=== PATIENT | female | born 1995 | race American Indian/Alaskan Native ===

== ENCOUNTER 2018-04-10 13:16 | Inpatient (IN) | payer MEDICAID ==
--- NOTE | 2018-04-10 16:00 | History and Physical Report ---
History of Present Illness Date of examination: 04/10/18 Date of admission: 04/10/18 13:18 Chief complaint: Induction of labor History of present illness: Pt is a 22yo BF EDC 04/20/18; EGA 38 4/7 weeks presents for induction of labor per [facility] due to Oligohydramnios (SHELIA 5.32). She received care at [facility] since 12 weeks and co-managed by [facility] for +RPR with - FTA - previously treated with PCN, and +EVY with titer 1:640 records are available and GBS is Positive. Past History Past Medical History: other (+VEY) Past Surgical History: no surgical history RIPRAP MAN History: abnormal PAP smear (LSIL) Social history: no significant social history, single - Obstetrical History Expected Date of Delivery: 04/20/18 Actual Gestation: 38 Week(s) 4 Day(s) : 1 Medications and Allergies Allergies Allergy/AdvReac Type Severity Reaction Status Date / Time No Known Allergies Allergy Verified 04/10/18 15:04 Home Medications Medication Instructions Recorded Confirmed Last Taken Type Iron 1 tab PO DAILY 04/10/18 04/10/18 04/09/18 21:00 History Pnv No.95/Ferrous Fum/Folic AC 1 tab PO DAILY 04/10/18 04/10/18 04/09/18 21:00 History [ Formula Tablet] Review of Systems All systems: negative - Vital Signs Vital signs: Vital Signs Pulse Pulse Ox 85 98 04/10/18 13:46 04/10/18 13:46 Temp Pulse Resp BP Pulse Ox 98.8 F 88 18 117/79 100 04/10/18 14:10 04/10/18 14:28 04/10/18 14:10 04/10/18 14:28 04/10/18 13:56 - Physical Exam Breasts: Positive: deferred Cardiovascular: Regular rate Lungs: Positive: Clear to auscultation Abdomen: Positive: normal appearance Genitourinary (Female): Positive: normal external genitalia Vagina: Positive: normal moisture Uterus: Positive: enlarged Extremities: Positive: normal - Obstetrical FHR: category 1 Uterine Contraction Monitor Mode: External Cervical Dilatation: 1 (per nurse) Cervical Effacement Percentage: 50 (per nurse) station: -2 Uterine Contraction Pattern: Regular Uterine Tone Measurement Phase: Contraction Uterine Contraction Intensity: Mild Results Result Diagrams: 04/10/18 17:16 All other labs normal. Ultrasound: report reviewed Assessment and Plan - Patient Problems (1) 38 weeks gestation of Onset Date: 04/10/18 Current Visit: Yes Status: Acute Plan to address problem: A: IUP @ 38 4/7 weeks Oligohydramnios +RPR +EVY +GBS P: Admit to L&D for pitocin induction of labor IV Ampicillin (2) Oligohydramnios without rupture of membranes in third trimester Onset Date: 04/10/18 Current Visit: Yes Status: Acute Qualifiers: Fetus number: single or unspecified fetus Qualified Code(s): O41.03X0 - Oligohydramnios, third trimester, not applicable or unspecified (3) Positive RPR test Onset Date: 04/10/18 Current Visit: Yes Status: Chronic (4) EVY positive Onset Date: 04/10/18 Current Visit: Yes Status: Chronic
[2018-04-10] MEDS ORDERED: XYLOCAINE 2% INFILTRATI ONE (16:01)
[2018-04-10] MEDS ORDERED: POLYCILLIN/NS 2 GM/100 ML 2 GM/100 ML BAG IV ONE (16:01)
[2018-04-10] MEDS ORDERED: MINERAL OIL PO PRN (16:01)
[2018-04-10] MEDS ORDERED: ePHEDrine SULFATE IV PRN (16:01)
[2018-04-10] MEDS ORDERED: NARCAN 0.4 MG/1 ML IV PRN (16:01)
[2018-04-10] MEDS ORDERED: SUBLIMAZE IV PRN (16:01)
[2018-04-10] MEDS ORDERED: BRETHINE IVP PRN (16:01)
[2018-04-10] MEDS ORDERED: PHENERGAN PO PRN (16:01)
[2018-04-10] MEDS ORDERED: PHENERGAN PR PRN (16:01)
[2018-04-10] MEDS ORDERED: BRETHINE SUB-Q PRN (16:01)
[2018-04-10] MEDS: LACTATED RINGERS 1,000 ML IV SCH (16:33)
[2018-04-10] MEDS ORDERED: PITOCin/NS 20 UNIT/1000ML DRIP 20 UNITS/1,000 ML BAG IV SCH (17:00)
[2018-04-10] MEDS ORDERED: PITOCin/NS 30 UNIT/500ML 30 UNITS/500 ML BAG IV SCH (17:00)
[2018-04-10 18:28] LABS: Hemoglobin 10.8 gm/dl (10.1-14.3); Mean Corpuscular HGB Conc 31 % (30-34); Mean Corpuscular Hemoglobin 26 pg (28-32); Mean Corpuscular Volume 85 fl (79-97); Platelet Count 275 K/mm3 (140-440); Red Blood Count 4.14 M/mm3 (3.65-5.03); Red Cell Distribution Width 16.9 % (13.2-15.2)
[2018-04-10] MEDS: AMPICILLIN/NS 1 GM/50 ML 1 GM/50 ML BAG IV SCH ×2 (20:33→22:44)
[2018-04-10] MEDS: STADOL IV PRN (21:17)
[2018-04-11] MEDS: STADOL IV PRN (00:18)
[2018-04-11] MEDS: LACTATED RINGERS 1,000 ML IV SCH (00:33)
[2018-04-11] MEDS ORDERED: ePHEDrine SULFATE IV PRN (01:13)
[2018-04-11] MEDS ORDERED: NARCAN 2 MG/2 ML IV PRN (01:13)
[2018-04-11] MEDS ORDERED: fentaNYL-BUPIV 2 MCG/ML-0.125% 200 MCG/100 ML BAG EPIDURAL SCH (02:00)
--- NOTE | 2018-04-11 02:53 | Procedure Note ---
OB Delivery Note - Delivery Date of Delivery: 04/11/18 Surgeon: JOSE A MCQUEEN Estimated blood loss: 200cc - Vaginal Delivery presentation: vertex Delivery position: OP Intrapartum events: PROM->1hr before delivery, hydramnios Delivery induction: oxytocin Delivery augmentation: rupture of membranes, pitocin Delivery monitor: external FHT, external uterine Route of delivery: Delivery placenta: spontaneous Delivery cord: 3 umbilical vessels Episiotomy: none Delivery laceration: none Anesthesia: epidural Delivery comments: Infant delivered OP and placed on Mom's chest for [id number] bonding and delayed cord clamping, cut by Daisy - Infant A at 1 minute: 8 at 5 minutes: 9 Infant Gender: Female (2661gms)
[2018-04-11] MEDS ORDERED: PHENERGAN PO PRN (02:55)
[2018-04-11] MEDS ORDERED: ZOFRAN IV PRN (02:55)
[2018-04-11] MEDS ORDERED: PHENERGAN PR PRN (02:55)
[2018-04-11] MEDS ORDERED: TUCKS PAD TP PRN (02:55)
[2018-04-11] MEDS ORDERED: DULCOLAX PR PRN (02:55)
[2018-04-11] MEDS ORDERED: TYLENOL PO PRN (02:55)
[2018-04-11] MEDS ORDERED: BENADRYL PO PRN (02:55)
[2018-04-11] MEDS ORDERED: MILK OF MAGNESIA PO PRN (02:55)
[2018-04-11] MEDS ORDERED: NORCO 5/325 PO PRN (02:55)
[2018-04-11] MEDS ORDERED: LANSINOH TP PRN (02:55)
[2018-04-11] MEDS ORDERED: SODIUM CHLORIDE FLUSH SYRINGE 10 ML IV NR (03:00)
[2018-04-11] MEDS ORDERED: PITOCin/NS 20 UNIT/1000ML DRIP 20 UNITS/1,000 ML BAG IV SCH (03:00)
[2018-04-11] MEDS: MOTRIN PO SCH ×3 (05:40→20:30)
[2018-04-11] MEDS ORDERED: PRENATAL VITAMIN PO SCH (10:00)
[2018-04-11 17:23] LABS: Hematocrit 29.3 % (30.3-42.9); Hemoglobin 8.9 gm/dl (10.1-14.3)
[2018-04-11] MEDS: FEOSOL PO SCH (21:30)
[2018-04-11] MEDS: COLACE PO SCH (21:30)
[2018-04-12] MEDS ORDERED: BOOSTRIX IM ONE (06:00)
[2018-04-12] MEDS ORDERED: M-M-R II VACCINE SUB-Q ONE (06:00)
--- NOTE | 2018-04-12 08:25 | Progress Note ---
Assessment and Plan - Patient Problems (1) 38 weeks gestation of Onset Date: 04/10/18 Current Visit: Yes Status: Resolved (2) Oligohydramnios without rupture of membranes in third trimester Onset Date: 04/10/18 Current Visit: Yes Status: Resolved Qualifiers: Fetus number: single or unspecified fetus Qualified Code(s): O41.03X0 - Oligohydramnios, third trimester, not applicable or unspecified (3) Positive RPR test Onset Date: 04/10/18 Current Visit: Yes Status: Chronic (4) EVY positive Onset Date: 04/10/18 Current Visit: Yes Status: Chronic (5) (normal spontaneous vaginal delivery) Onset Date: 04/12/18 Current Visit: Yes Status: Resolved Plan to address problem: A: S/P - PPD #1 Doing well +RPR - 1:8 +EVY P: May go home today Follow up in office in 4 weeks for repeat RPR titer Subjective - Subjective Date of service: 04/12/18 Principal diagnosis: s/p - PPD #1 Interval history: Pt is feeling well without complaints. Bleeding improved. Patient reports: appetite normal, voiding normally, pain well controlled, flatus , ambulating normally, no dizzy ambulation, no nauseated Comins: doing well, bottle feeding Objective - Vital Signs Latest vital signs: Vital Signs Temp Pulse Resp BP Pulse Ox 04/12/18 01:57 98.9 F 90 20 122/78 98 04/11/18 15:40 99.4 F 102 H 20 123/73 97 04/11/18 11:46 99.2 F 95 H 20 118/71 97 Intake and Output 04/11/18 04/12/18 04/12/18 22:59 06:59 14:59 Intake Total 240 240 Balance 240 240 Intake: Oral 240 240 Other: Total, Intake Amount 240 240 # Voids Void 1 1 - Exam Breasts: Present: deferred Cardiovascular: Present: Regular rate Lungs: Present: Clear to auscultation Abdomen: Present: normal appearance, soft Uterus: Present: normal, firm, fundal height below umbilicus Extremities: Present: normal - Labs Labs: Abnormal lab results 04/11/18 Range/Units 16:57 Hgb 8.9 L (10.1-14.3) gm/dl Hct 29.3 L (30.3-42.9) % Laboratory Tests 04/10/18 04/10/18 04/10/18 17:16 17:16 17:46 WBC 7.7 RBC 4.14 Hgb 10.8 Hct 35.0 MCV 85 MCH 26 L MCHC 31 RDW 16.9 H Plt Count 275 RPR Titer 1:8 RPR Reactive Blood Type A POSITIVE Antibody Screen Negative 04/11/18 16:57 WBC RBC Hgb 8.9 L Hct 29.3 L MCV MCH MCHC RDW Plt Count RPR Titer RPR Blood Type Antibody Screen
[2018-04-12] MEDS: COLACE PO SCH (10:42)
[2018-04-12] MEDS: FEOSOL PO SCH (10:42)
--- NOTE | 2018-04-12 12:21 | Discharge Summary ---
Providers - Providers Date of Admission: 04/10/18 13:18 Date of discharge: 04/12/18 Attending physician: JOSE A MCQUEEN Primary care physician: JOSE A MCQUEEN Hospitalization Reason for admission: induction of labor, IUP at term, other (Oligohydramnios; + RPR; +EVY) Delivery: Episiotomy: none Laceration: none Other procedures: none complications: none Discharge diagnosis: IUP at term delivered baby: female Hospital course: Unremarkable. Condition at discharge: Good Disposition: DC-01 TO HOME OR SELFCARE - Discharge Diagnoses (1) 38 weeks gestation of Status: Resolved (2) Oligohydramnios without rupture of membranes in third trimester Status: Resolved Qualifiers: Fetus number: single or unspecified fetus Qualified Code(s): O41.03X0 - Oligohydramnios, third trimester, not applicable or unspecified (3) Positive RPR test Status: Chronic (4) EVY positive Status: Chronic (5) (normal spontaneous vaginal delivery) Status: Resolved Plan - Discharge Medications Prescriptions: Ferrous Sulfate [Feosol 325 MG tab] 325 mg PO BID #60 tablet Ibuprofen [Motrin 600 MG tab] 600 mg PO Q6H #30 tablet Vit-Fe Fumar-FA [ Vitamin] 1 each PO QDAY #30 tablet - Provider Discharge Summary Activity: routine, no sex for 6 weeks, no heavy lifting 4 weeks, no strenuous exercise Diet: routine Instructions: routine Additional instructions: [] Smoking cessation referral if applicable(refer to patient education folder for contact #) [] Refer to [facility] Booklet Call your doctor immediately for: * Fever > 100.5 * Heavy vaginal bleeding ( >1 pad per hour) * Severe persistent headache * Shortness of breath * Reddened, hot, painful area to leg or breast * Drainage or odor from incision. * Keep incision clean and dry at all times and follow doctor's instructions regarding bathing/showering Follow up in 4 weeks for repeat RPR - Follow up plan Follow up: JOSE A MCQUEEN MD [Primary Care Provider] - 6 Weeks
[2018-04-12 18:03] VITALS: BP 123/81
== END 2018-04-12 18:30 | disposition home or self-care (01) | DRG 775 ==
LOC: TRG 13:16 → LD 13:18 → OB 04-11 04:22
PROVIDERS: ADMIT Obstetrics & Gynecology; ATTEND Obstetrics & Gynecology
PROC: 10E0XZZ Delivery of Products of Conception, External Approach (ICD-10-PCS; principal; 2018-04-11)
PROC: 3E033VJ Introduction of Other Hormone into Peripheral Vein, Percutaneous Approach (ICD-10-PCS; 2018-04-11)
PROC: 3E0R3BZ Introduction of Anesthetic Agent into Spinal Canal, Percutaneous Approach (ICD-10-PCS; 2018-04-11)
PROC: 00HU33Z Insertion of Infusion Device into Spinal Canal, Percutaneous Approach (ICD-10-PCS; 2018-04-11)
PROC: 3E0234Z Introduction of Serum, Toxoid and Vaccine into Muscle, Percutaneous Approach (ICD-10-PCS; 2018-04-12)
DX: O41.03X0 Oligohydramnios, third trimester, not applicable or unspecified (principal); O42.02 Full-term premature rupture of membranes, onset of labor within 24 hours of rupture; Z3A.38 38 weeks gestation of pregnancy; Z37.0 Single live birth; Z23 Encounter for immunization
CPT/HCPCS: 36415; 85014; 85018; 85027; 86592; 86593; 86780; 86850; 86900; 86901; 88307; J0290; J0595; J2590; J3010; J7120

== ENCOUNTER 2019-08-02 19:59 | Emergency (ER) | payer SELFPAY ==
--- NOTE | 2019-08-02 21:41 | Emergency Department Report ---
ED General Adult HPI - General Chief complaint: Urogenital-Female Stated complaint: RT BREAST ISSUE Source: patient Mode of arrival: Ambulatory Limitations: No Limitations - History of Present Illness Initial comments: Patient is a 24-year-old [place] female with no past medical history who presents to the ED with complaint of acute onset persistent painful mildly erythematous maculopapular nonfluctuant rash on right breast areolar for the last 4 days. Patient states that the rash started draining purulent discharge about one hour prior to arrival in the ED. Patient denies dizziness, fever, chills, nausea, vomiting, shortness of breath or sore throat. MD Complaint: painful draining rash on right breast -: Sudden, days(s) (4) Location: chest (right breast areolar) Radiation: non-radiation Quality: aching, sharp Consistency: constant Improves with: none Worsens with: none Associated Symptoms: denies other symptoms. denies: confusion, cough, diaphoresis, fever/chills, headaches, loss of appetite, malaise, nausea/vomiting, rash, shortness of breath, syncope, other Treatments Prior to Arrival: none - Related Data Home Medications Medication Instructions Recorded Confirmed Last Taken Iron 1 tab PO DAILY 04/10/18 04/10/18 04/09/18 21:00 Pnv No.95/Ferrous Fum/Folic AC 1 tab PO DAILY 04/10/18 04/10/18 04/09/18 21:00 [ Formula Tablet] Previous Rx's Medication Instructions Recorded Last Taken Type Ferrous Sulfate [Feosol 325 MG tab] 325 mg PO BID #60 tablet 04/12/18 Unknown Rx Vit-Fe Fumar-FA [ 1 each PO QDAY #30 tablet 04/12/18 Unknown Rx Vitamin] Ibuprofen [Motrin 600 MG tab] 600 mg PO Q6H PRN #20 tablet 08/02/19 Unknown Rx Sulfamethoxazole/Trimethoprim 1 each PO Q12H #20 tablet 08/02/19 Unknown Rx [Bactrim DS TAB] Allergies Allergy/AdvReac Type Severity Reaction Status Date / Time No Known Allergies Allergy Verified 04/10/18 15:04 ED Review of Systems ROS: Stated complaint: RT BREAST ISSUE Other details as noted in HPI Constitutional: denies: chills, fever Eyes: denies: eye pain, eye discharge, vision change ENT: denies: ear pain, throat pain Respiratory: denies: cough, shortness of breath, wheezing Cardiovascular: denies: chest pain, palpitations Endocrine: no symptoms reported Gastrointestinal: denies: abdominal pain, nausea, diarrhea Genitourinary: denies: urgency, dysuria, discharge Musculoskeletal: denies: back pain, joint swelling, arthralgia Skin: rash (erythematous maculopapular moderately painful nonfluctuant rash with purulent discharge on right breast areola). denies: lesions Neurological: denies: headache, weakness, paresthesias Psychiatric: denies: anxiety, depression Hematological/Lymphatic: denies: easy bleeding, easy bruising ED Past Medical Hx - Past Medical History Hx Hypertension: No Hx Congestive Heart Failure: No Hx Diabetes: No Hx Deep Vein Thrombosis: No Hx Renal Disease: No Hx Sickle Cell Disease: No Hx Seizures: No Hx Asthma: No Hx COPD: No Hx HIV: No - Social History Smoking Status: Never Smoker - Medications Home Medications: Home Medications Medication Instructions Recorded Confirmed Last Taken Type Iron 1 tab PO DAILY 04/10/18 04/10/18 04/09/18 21:00 History Pnv No.95/Ferrous Fum/Folic AC 1 tab PO DAILY 04/10/18 04/10/18 04/09/18 21:00 History [ Formula Tablet] Ferrous Sulfate [Feosol 325 MG tab] 325 mg PO BID #60 tablet 04/12/18 Unknown Rx Vit-Fe Fumar-FA [ 1 each PO QDAY #30 tablet 04/12/18 Unknown Rx Vitamin] Ibuprofen [Motrin 600 MG tab] 600 mg PO Q6H PRN #20 tablet 08/02/19 Unknown Rx Sulfamethoxazole/Trimethoprim 1 each PO Q12H #20 tablet 08/02/19 Unknown Rx [Bactrim DS TAB] ED Physical Exam - General Limitations: No Limitations General appearance: alert, in no apparent distress - Head Head exam: Present: atraumatic, normocephalic, normal inspection - Eye Eye exam: Present: normal appearance, PERRL, EOMI - ENT ENT exam: Present: normal exam, normal orophraynx, mucous membranes moist, TM's normal bilaterally, normal external ear exam - Neck Neck exam: Present: normal inspection, full ROM - Respiratory Respiratory exam: Present: normal lung sounds bilaterally. Absent: respiratory distress, wheezes, rales, accessory muscle use, decreased breath sounds - Cardiovascular Cardiovascular Exam: Present: regular rate, normal rhythm, normal heart sounds. Absent: systolic murmur, diastolic murmur, rubs, gallop - GI/Abdominal GI/Abdominal exam: Present: soft, normal bowel sounds. Absent: tenderness - Extremities Exam Extremities exam: Present: normal inspection, full ROM, normal capillary refill - Back Exam Back exam: Present: normal inspection, full ROM - Neurological Exam Neurological exam: Present: alert, oriented X3, CN II-XII intact, normal gait, reflexes normal - Psychiatric Psychiatric exam: Present: normal affect, normal mood - Skin Skin exam: Present: warm, dry, intact, rash (erythematous maculopapular rash on right breast areolar with purulent discharge), erythema, other (erythematous maculopapular nonfluctuant rash on right breast areola with purulent discharge) ED Medical Decision Making - Medical Decision Making This is a 24-year-old female who presented to the ED with painful swollen erythematous maculopapular nonfluctuant rash with purulent discharge on right breast areolar for 4 days. In the ED, patient is alert and oriented 3 and is not in distress. Patient was discharged home on antibiotics and pain m edications the wound was dressed appropriately. Patient is advised to follow-up with her primary care physician in 7-10 days for reevaluation. Patient was also advised to return to the ED immediately if symptoms get worse. - Differential Diagnosis cellulitis; acute folliculitis, abscesss Critical care attestation.: If time is entered above; I have spent that time in minutes in the direct care of this critically ill patient, excluding procedure time. ED Disposition Clinical Impression: Cellulitis of right breast, Acute folliculitis Disposition: DC- TO HOME OR SELFCARE Is pt being admited?: No Does the pt Need Aspirin: No Condition: Stable Instructions: Cellulitis (ED), Folliculitis (ED) Additional Instructions: Take medication with food, drink plenty of fluids and follow-up with your primary care physician in 7-10 days for reevaluation. Return to the ED immediately if symptoms get worse. Prescriptions: Sulfamethoxazole/Trimethoprim [Bactrim DS TAB] 1 each PO Q12H #20 tablet Ibuprofen [Motrin 600 MG tab] 600 mg PO Q6H PRN #20 tablet PRN Reason: Pain , Severe (7-10) Referrals: [facility] [Outside] - 3-5 Days Time of Disposition: 21:38 Print Language: NEPALESE
== END 2019-08-02 22:02 | disposition home or self-care (01) ==
LOC: ED 19:59
DX: N61.0 Mastitis without abscess (principal); L73.9 Follicular disorder, unspecified; Z79.899 Other long term (current) drug therapy; Z79.1 Long term (current) use of non-steroidal anti-inflammatories (NSAID)
CPT/HCPCS: 99281

== ENCOUNTER 2020-05-03 00:41 | Emergency (ER) | payer SELFPAY ==
[2020-05-03 00:53] VITALS: BP 112/74
[2020-05-03 01:18] LABS: Basophils % (Auto) 0.2 % (0.0-1.8); Eosinophils # (Auto) 0.2 K/mm3 (0.0-0.4); Eosinophils % (Auto) 3.6 % (0.0-4.3); Hematocrit 38.7 % (30.3-42.9); Hemoglobin 12.2 gm/dl (10.1-14.3); Lymphocytes # (Auto) 2.4 K/mm3 (1.2-5.4); Lymphocytes % (Auto) 48.1 % (13.4-35.0); Mean Corpuscular HGB Conc 32 % (30-34); Mean Corpuscular Volume 87 fl (79-97); Monocytes # (Auto) 0.4 K/mm3 (0.0-0.8); Platelet Count 248 K/mm3 (140-440); Red Blood Count 4.47 M/mm3 (3.65-5.03); Red Cell Distribution Width 13.6 % (13.2-15.2)
[2020-05-03 01:26] LABS: Bilirubin,Urine NEG (Negative); Blood,Urine NEG (Negative); Color,Urine Yellow (Yellow); Mucus,Urine 2+ /HPF; Protein,Urine <15 mg/dL mg/dL (Negative); Urobilinogen,Urine < 2.0 mg/dL (<2.0)
[2020-05-03 01:42] LABS: Alanine Aminotransferase 7 units/L (7-56); Albumin 4.1 g/dL (3.9-5); BUN/Creatinine Ratio 18; Blood Urea Nitrogen 11 mg/dL (7-17); Hemolysis Index 2
[2020-05-03] MEDS ORDERED: FAMOTIDINE 20 MG TAB PO ONE (04:38)
[2020-05-03] MEDS ORDERED: ONDANSETRON 4 MG ODT TAB PO ONE (04:38)
[2020-05-03] MEDS ORDERED: DICYCLOMINE 20 MG TAB PO ONE (04:38)
--- NOTE | 2020-05-03 05:14 | Cat Scan Report ---
CT ABDOMEN AND PELVIS WITHOUT CONTRAST INDICATION: abdominal pain. TECHNIQUE: Axial CT images were obtained through the abdomen and pelvis without IV contrast. All CT scans at [facility] are performed using CT dose reduction for ALARA by means of automated exposure control. COMPARISON: None available. FINDINGS: LOWER CHEST: No significant abnormality. LIVER: No significant abnormality. GALLBLADDER: No significant abnormality. BILE DUCTS: No significant abnormality. PANCREAS: No significant abnormality. SPLEEN: No significant abnormality. ADRENALS: No significant abnormality. RIGHT KIDNEY and URETER: No significant abnormality. LEFT KIDNEY and URETER: No significant abnormality. STOMACH and SMALL BOWEL: No significant abnormality. COLON: Moderate amount of solid stool characteristic for constipation APPENDIX: No significant abnormality. PERITONEUM: No free fluid. No free air. No fluid collection. LYMPH NODES: No significant adenopathy. AORTA and ARTERIES: No significant abnormality. IVC and VEINS: No significant abnormality. URINARY BLADDER: No significant abnormality. REPRODUCTIVE ORGANS: No significant abnormality. ADDITIONAL FINDINGS: None. SKELETAL SYSTEM: No significant abnormality. IMPRESSION: 1. Constipation. 2. No urinary tract calculi or hydronephrosis Signer Name: Jaya Garza MD Signed: 05/03/2020 5:09 AM Workstation Name: [id number]
--- NOTE | 2020-05-03 05:37 | Emergency Department Report ---
ED Abdominal Pain HPI - General Chief Complaint: Abdominal Pain Stated Complaint: ABDOMINAL PAIN Source: patient Mode of arrival: Ambulatory Limitations: No Limitations - History of Present Illness Initial Comments: Patient is a nulliparous 24-year-old -[place] female with no past medical history presents to the ED with acute onset persistent diffuse abdominal pain worse in the lower abdomen diffusely intermittently for the last 4 months, worse in the last 3 days. Patient states that the last time she had a bowel movement was 3 days ago. Patient also complains of intermittent nausea and vomiting. Patient denies dizziness, syncope, fever, chills, diarrhea, dysuria, urinary frequency and urgency, chest pain, shortness of breath, sore throat, vaginal bleeding, vaginal discharge, dyspareunia or low back pain and cough. MD Complaint: abdominal pain, other (nausea and vomiting) -: Gradual, month(s) (4) Location: suprapubic Radiation: suprapubic Migration to: no migration Severity: mild Severity scale (0 -10): 3 Quality: cramping, sharp Consistency: intermittent Improves With: nothing Worsens With: nothing Associated Symptoms: denies other symptoms, nausea, vomiting. denies: diarrhea, fever, chills, constipation, dysuria, hematemesis, melena, hematuria, anorexia, syncope, other - Related Data LMP Date: 04/23/20 Home Medications Medication Instructions Recorded Confirmed Last Taken Iron 1 tab PO DAILY 04/10/18 04/10/18 04/09/18 21:00 Pnv No.95/Ferrous Fum/Folic AC 1 tab PO DAILY 04/10/18 04/10/18 04/09/18 21:00 [ Formula Tablet] Previous Rx's Medication Instructions Recorded Last Taken Type Ferrous Sulfate [Feosol 325 MG tab] 325 mg PO BID #60 tablet 04/12/18 Unknown Rx Vit-Fe Fumar-FA [ 1 each PO QDAY #30 tablet 04/12/18 Unknown Rx Vitamin] Ibuprofen [Motrin 600 MG tab] 600 mg PO Q6H PRN #20 tablet 08/02/19 Unknown Rx Sulfamethoxazole/Trimethoprim 1 each PO Q12H #20 tablet 08/02/19 Unknown Rx [Bactrim DS TAB] Dicyclomine [Bentyl] 20 mg PO Q6H PRN #20 tablet 05/03/20 Unknown Rx Docusate Sodium [Colace CAP] 100 mg PO BID PRN #60 capsule 05/03/20 Unknown Rx Magnesium Citrate 296 ml PO ONCE #1 bottle 05/03/20 Unknown Rx Ondansetron [Zofran Odt] 4 mg PO Q6HR PRN #5 tab.rapdis 05/03/20 Unknown Rx Allergies Allergy/AdvReac Type Severity Reaction Status Date / Time No Known Allergies Allergy Verified 04/10/18 15:04 ED Review of Systems ROS: Stated complaint: ABDOMINAL PAIN Other details as noted in HPI Constitutional: denies: chills, fever Eyes: denies: eye pain, eye discharge, vision change ENT: denies: ear pain, throat pain Respiratory: denies: cough, shortness of breath, wheezing Cardiovascular: denies: chest pain, palpitations Endocrine: no symptoms reported Gastrointestinal: abdominal pain, nausea, vomiting. denies: diarrhea Genitourinary: denies: urgency, dysuria, discharge Musculoskeletal: denies: back pain, joint swelling, arthralgia Skin: denies: rash, lesions Neurological: denies: headache, weakness, paresthesias Psychiatric: denies: anxiety, depression Hematological/Lymphatic: denies: easy bleeding, easy bruising ED Past Medical Hx - Past Medical History Previous Medical History?: No Hx Hypertension: No Hx Congestive Heart Failure: No Hx Diabetes: No Hx Deep Vein Thrombosis: No Hx Renal Disease: No Hx Sickle Cell Disease: No Hx Seizures: No Hx Asthma: No Hx COPD: No Hx HIV: No - Surgical History Past Surgical History?: No - Social History Smoking Status: Never Smoker Substance Use Type: None - Medications Home Medications: Home Medications Medication Instructions Recorded Confirmed Last Taken Type Iron 1 tab PO DAILY 04/10/18 04/10/18 04/09/18 21:00 History Pnv No.95/Ferrous Fum/Folic AC 1 tab PO DAILY 04/10/18 04/10/18 04/09/18 21:00 History [ Formula Tablet] Ferrous Sulfate [Feosol 325 MG tab] 325 mg PO BID #60 tablet 04/12/18 Unknown Rx Vit-Fe Fumar-FA [ 1 each PO QDAY #30 tablet 04/12/18 Unknown Rx Vitamin] Ibuprofen [Motrin 600 MG tab] 600 mg PO Q6H PRN #20 tablet 08/02/19 Unknown Rx Sulfamethoxazole/Trimethoprim 1 each PO Q12H #20 tablet 08/02/19 Unknown Rx [Bactrim DS TAB] Dicyclomine [Bentyl] 20 mg PO Q6H PRN #20 tablet 05/03/20 Unknown Rx Docusate Sodium [Colace CAP] 100 mg PO BID PRN #60 capsule 05/03/20 Unknown Rx Magnesium Citrate 296 ml PO ONCE #1 bottle 05/03/20 Unknown Rx Ondansetron [Zofran Odt] 4 mg PO Q6HR PRN #5 tab.rapdis 05/03/20 Unknown Rx ED Physical Exam - General Limitations: No Limitations General appearance: alert, in no apparent distress - Head Head exam: Present: atraumatic, normocephalic, normal inspection - Eye Eye exam: Present: normal appearance, PERRL, EOMI Pupils: Present: normal accommodation - ENT ENT exam: Present: normal exam, normal orophraynx, mucous membranes moist, TM's normal bilaterally, normal external ear exam - Neck Neck exam: Present: normal inspection, full ROM - Respiratory Respiratory exam: Present: normal lung sounds bilaterally. Absent: respiratory distress, wheezes, rales, stridor, chest wall tenderness, accessory muscle use, decreased breath sounds - Cardiovascular Cardiovascular Exam: Present: regular rate, normal rhythm. Absent: systolic murmur, diastolic murmur, rubs, gallop - GI/Abdominal GI/Abdominal exam: Present: soft, tenderness (Palpable mild suprapubic tenderness), normal bowel sounds. Absent: guarding, rebound, hyperactive bowel sounds, hypoactive bowel sounds - Extremities Exam Extremities exam: Present: normal inspection, full ROM, normal capillary refill - Back Exam Back exam: Present: normal inspection, full ROM. Absent: tenderness, CVA tenderness (R), CVA tenderness (L), muscle spasm, paraspinal tenderness - Neurological Exam Neurological exam: Present: alert, oriented X3, CN II-XII intact, normal gait, reflexes normal - Psychiatric Psychiatric exam: Present: normal affect, normal mood - Skin Skin exam: Present: warm, dry, intact, normal color. Absent: rash ED Course Vital Signs 05/03/20 05/03/20 00:51 06:13 Temperature 98.9 F Pulse Rate 81 63 Respiratory 18 16 Rate Blood Pressure 112/74 O2 Sat by Pulse 100 100 Oximetry ED Medical Decision Making - Lab Data Result diagrams: 05/03/20 00:55 05/03/20 00:55 - Radiology Data Radiology results: report reviewed, image reviewed Findings [facility] [address] [place] [address] Cat Scan Report Signed Patient: ANAHI MYRICK MR #: [id number] : 1995 Acct:[id number] Age/Sex: 24 / F ADM Date: 05/03/20 Loc: ED Attending Dr: Ordering Physician: GLORIA GARCIA Date of Service: 05/03/20 Procedure(s): CT abdomen pelvis wo con Accession Number(s): [id number] cc: GLORIA GARCIA CT ABDOMEN AND PELVIS WITHOUT CONTRAST INDICATION: abdominal pain. TECHNIQUE: Axial CT images were obtained through the abdomen and pelvis without IV contrast. All CT scans at this location are performed using CT dose reduction for ALARA by means of automated exposure contro l. COMPARISON: None available. FINDINGS: LOWER CHEST: No significant abnormality. LIVER: No significant abnormality. GALLBLADDER: No significant abnormality. BILE DUCTS: No significant abnormality. PANCREAS: No significant abnormality. SPLEEN: No significant abnormality. ADRENALS: No significant abnormality. RIGHT KIDNEY and URETER: No significant abnormality. LEFT KIDNEY and URETER: No significant abnormality. STOMACH and SMALL BOWEL: No significant abnormality. COLON: Moderate amount of solid stool characteristic for constipation APPENDIX: No significant abnormality. PERITONEUM: No free fluid. No free air. No fluid collection. LYMPH NODES: No significant adenopathy. AORTA and ARTERIES: No significant abnormality. IVC and VEINS: No significant abnormality. URINARY BLADDER: No significant abnormality. REPRODUCTIVE ORGANS: No significant abnormality. ADDITIONAL FINDINGS: None. SKELETAL SYSTEM: No significant abnormality. IMPRESSION: 1. Constipation. 2. No urinary tract calculi or hydronephrosis Signer Name: Jaya Garza MD Signed: 05/03/2020 5:09 AM Workstation Name: [id number] Transcribed By: TL Dictated By: Jaya Garza MD Electronically Authenticated By: Jaya Garza MD Signed Date/Time: 05/03/20508 DD/ 7 TD/TT: - Medical Decision Making This is a nulliparous 24-year-old -[place] female with no past medical history presents to the ED with acute onset persistent diffuse abdominal pain worse in the lower abdomen diffusely intermittently for the last 4 months, worse in the last 3 days. Patient states that the last time she had a bowel movement was 3 days ago. Patient also complains of intermittent nausea and vomiting. In the ED, patient is alert and oriented x3 and is not in distress with normal vital signs. Patient was treated for pain in the ED, and lab test results were reviewed and are all nonactionable including urinalysis. Patient declined pelvic exam. Abdomen pelvis CT scan without contrast showed no acute abnormalities except for constipation. Patient was discharged home on medications and advised to drink plenty of fluids, eat more fiber in her diet a nd drink more water. Patient is advised to follow-up with her primary care physician in 5 to 7 days for reevaluation or return to the ED immediately if symptoms get worse. - Differential Diagnosis Kidney stones; Appendicitis; constipation; UTI; ; Ovarian cyst Critical care attestation.: If time is entered above; I have spent that time in minutes in the direct care of this critically ill patient, excluding procedure time. ED Disposition Clinical Impression: Nausea and vomiting in adult Abdominal pain Qualifiers: Abdominal location: lower abdomen, unspecified Qualified Code(s): R10.30 - Lower abdominal pain, unspecified Constipation Qualifiers: Constipation type: other constipation type Qualified Code(s): K59.09 - Other constipation Disposition: DC-01 TO HOME OR SELFCARE Is pt being admited?: No Does the pt Need Aspirin: No Condition: Stable Instructions: Constipation (ED), Acute Nausea and Vomiting (ED), Abdominal Pain (ED) Additional Instructions: Take medication with food, drink plenty of fluids and follow up with your Primary Care Physician in 7-10 days for reevaluation. Return to the ED immediately if symptoms get worse. Prescriptions: Dicyclomine [Bentyl] 20 mg PO Q6H PRN #20 tablet PRN Reason: ABDOMINAL PAIN Docusate Sodium [Colace CAP] 100 mg PO BID PRN #60 capsule PRN Reason: Constipation Magnesium Citrate 296 ml PO ONCE #1 bottle Ondansetron [Zofran Odt] 4 mg PO Q6HR PRN #5 tab.rapdis PRN Reason: Constipation Referrals: [facility] [Provider Group] - 7-10 days Time of Disposition: 05:38 Print Language: MONGOLIAN
== END 2020-05-03 06:13 | disposition home or self-care (01) ==
LOC: ED 00:41
DX: R10.84 Generalized abdominal pain (principal); R11.2 Nausea with vomiting, unspecified; K59.00 Constipation, unspecified; Z79.899 Other long term (current) drug therapy
CPT/HCPCS: 36415; 74176; 80053; 81001; 84703; 85025; Q0162

== ENCOUNTER 2021-06-15 08:04 | Emergency (ER) | payer OTHER ==
[2021-06-15 08:19] VITALS: BP 136/76
[2021-06-15 09:15] LABS: Basophils % (Auto) 0.2 % (0.0-1.8); Eosinophils # (Auto) 0.1 K/mm3 (0.0-0.4); Eosinophils % (Auto) 0.5 % (0.0-4.3); Hematocrit 40.9 % (30.3-42.9); Hemoglobin 13.1 gm/dl (10.1-14.3); Lymphocytes # (Auto) 1.3 K/mm3 (1.2-5.4); Lymphocytes % (Auto) 11.1 % (13.4-35.0); Mean Corpuscular HGB Conc 32 % (30-34); Mean Corpuscular Volume 87 fl (79-97); Monocytes # (Auto) 0.8 K/mm3 (0.0-0.8); Monocytes % (Auto) 6.4 % (0.0-7.3); Platelet Count 298 K/mm3 (140-440); Red Cell Distribution Width 13.4 % (13.2-15.2)
[2021-06-15 10:03] LABS: Alanine Aminotransferase 9 units/L (7-56); Albumin 4.4 g/dL (3.9-5); BUN/Creatinine Ratio 34; Blood Urea Nitrogen 17 mg/dL (7-17); Calcium 9.6 mg/dL (8.4-10.2); Hemolysis Index 15
[2021-06-15 10:38] LABS: Bacteria,Urine 1+ /HPF (Negative); Bilirubin,Urine NEG (Negative); Blood,Urine NEG (Negative); Color,Urine Yellow (Yellow); Mucus,Urine FEW /HPF; Protein,Urine <15 mg/dL mg/dL (Negative); Urobilinogen,Urine < 2.0 mg/dL (<2.0); WBC,Urine < 1.0 /HPF (0.0-6.0)
[2021-06-15 11:43] LABS: HCG Qualitative,Urine Positive (Negative)
--- NOTE | 2021-06-15 14:15 | Emergency Department Report ---
ED General Adult HPI - General Chief complaint: Abdominal Pain Stated complaint: ABD PAIN Time Seen by Provider: 06/15/21 13:21 Source: patient Mode of arrival: Ambulatory Limitations: No Limitations - History of Present Illness Initial comments: 25-year-old -[place] female patient presents with complaints of upper abdominal pain intermittently for the past year. She states the pain occurs 2-3 times a month and normally wakes her up out of her sleep. She describes it as a stabbing type pain that causes her to vomit and she remains nauseous for the rest of the day. The pain last occurring last night per patient. She denies any hematemesis/coffee-ground emesis, diarrhea/constipation, melena/hematochezia, fever/chills/sweats, chest pain, shortness of breath, or urinary symptoms. No pain at this time per patient. She denies any past medical history or abdominal surgical history. - Related Data Home Medications Medication Instructions Recorded Confirmed Last Taken Iron 1 tab PO DAILY 04/10/18 04/10/18 04/09/18 21:00 Pnv No.95/Ferrous Fum/Folic AC 1 tab PO DAILY 04/10/18 04/10/18 04/09/18 21:00 [ Formula Tablet] Previous Rx's Medication Instructions Recorded Last Taken Type Ferrous Sulfate [Feosol 325 MG tab] 325 mg PO BID #60 tablet 04/12/18 Unknown Rx Vit-Fe Fumar-FA [ 1 each PO QDAY #30 tablet 04/12/18 Unknown Rx Vitamin] Ibuprofen [Motrin 600 MG tab] 600 mg PO Q6H PRN #20 tablet 08/02/19 Unknown Rx Sulfamethoxazole/Trimethoprim 1 each PO Q12H #20 tablet 08/02/19 Unknown Rx [Bactrim DS TAB] Dicyclomine [Bentyl] 20 mg PO Q6H PRN #20 tablet 05/03/20 Unknown Rx Docusate Sodium [Colace CAP] 100 mg PO BID PRN #60 capsule 05/03/20 Unknown Rx Magnesium Citrate 296 ml PO ONCE #1 bottle 05/03/20 Unknown Rx Ondansetron [Zofran Odt] 4 mg PO Q6HR PRN #5 tab.rapdis 05/03/20 Unknown Rx Dicyclomine [Bentyl] 20 mg PO QID PRN #40 tablet 06/15/21 Unknown Rx Famotidine [Pepcid] 20 mg PO BID PRN #20 tablet 06/15/21 Unknown Rx Allergies Allergy/AdvReac Type Severity Reaction Status Date / Time No Known Allergies Allergy Verified 06/15/21 08:14 ED Review of Systems ROS: Stated complaint: ABD PAIN Other details as noted in HPI Constitutional: denies: chills, diaphoresis, fever, malaise ENT: denies: throat pain Respiratory: denies: cough, shortness of breath Gastrointestinal: abdominal pain, nausea, vomiting. denies: diarrhea, constipation, hematemesis, melena, hematochezia Genitourinary: denies: urgency, dysuria, frequency, hematuria, abnormal menses, dyspareunia Skin: denies: change in color Neurological: denies: headache ED Past Medical Hx - Past Medical History Hx Hypertension: No Hx Congestive Heart Failure: No Hx Diabetes: No Hx Deep Vein Thrombosis: No Hx Renal Disease: No Hx Sickle Cell Disease: No Hx Seizures: No Hx Asthma: No Hx COPD: No Hx HIV: No - Surgical History Past Surgical History?: No - Social History Smoking Status: Never Smoker Substance Use Type: None - Medications Home Medications: Home Medications Medication Instructions Recorded Confirmed Last Taken Type Iron 1 tab PO DAILY 04/10/18 04/10/18 04/09/18 21:00 History Pnv No.95/Ferrous Fum/Folic AC 1 tab PO DAILY 04/10/18 04/10/18 04/09/18 21:00 History [ Formula Tablet] Ferrous Sulfate [Feosol 325 MG tab] 325 mg PO BID #60 tablet 04/12/18 Unknown Rx Vit-Fe Fumar-FA [ 1 each PO QDAY #30 tablet 04/12/18 Unknown Rx Vitamin] Ibuprofen [Motrin 600 MG tab] 600 mg PO Q6H PRN #20 tablet 08/02/19 Unknown Rx Sulfamethoxazole/Trimethoprim 1 each PO Q12H #20 tablet 08/02/19 Unknown Rx [Bactrim DS TAB] Dicyclomine [Bentyl] 20 mg PO Q6H PRN #20 tablet 05/03/20 Unknown Rx Docusate Sodium [Colace CAP] 100 mg PO BID PRN #60 capsule 05/03/20 Unknown Rx Magnesium Citrate 296 ml PO ONCE #1 bottle 05/03/20 Unknown Rx Ondansetron [Zofran Odt] 4 mg PO Q6HR PRN #5 tab.rapdis 05/03/20 Unknown Rx Dicyclomine [Bentyl] 20 mg PO QID PRN #40 tablet 06/15/21 Unknown Rx Famotidine [Pepcid] 20 mg PO BID PRN #20 tablet 06/15/21 Unknown Rx ED Physical Exam - General Limitations: No Limitations General appearance: alert, in no apparent distress - Head Head exam: Present: atraumatic, normocephalic - Eye Eye exam: Present: normal appearance. Absent: scleral icterus - Respiratory Respiratory exam: Present: normal lung sounds bilaterally. Absent: respiratory distress - Cardiovascular Cardiovascular Exam: Present: regular rate, normal rhythm - GI/Abdominal GI/Abdominal exam: Present: soft, normal bowel sounds. Absent: distended, tenderness, guarding, rebound, rigid - Extremities Exam Extremities exam: Present: full ROM - Neurological Exam Neurological exam: Present: alert, oriented X3 - Psychiatric Psychiatric exam: Present: normal affect, normal mood - Skin Skin exam: Present: warm, dry, intact, normal color. Absent: rash ED Course Vital Signs 06/15/21 08:16 Temperature 98.9 F Pulse Rate 75 Respiratory 18 Rate Blood Pressure 136/76 O2 Sat by Pulse 100 Oximetry ED Medical Decision Making - Lab Data Result diagrams: 06/15/21 08:47 06/15/21 08:47 Lab Results 06/15/21 06/15/21 06/15/21 Range/Units 08:47 08:47 08:47 WBC 11.8 H (4.5-11.0) K/mm3 RBC 4.70 (3.65-5.03) M/mm3 Hgb 13.1 (10.1-14.3) gm/dl Hct 40.9 (30.3-42.9) % MCV 87 (79-97) fl MCH 28 (28-32) pg MCHC 32 (30-34) % RDW 13.4 (13.2-15.2) % Plt Count 298 (140-440) K/mm3 Lymph % (Auto) 11.1 L (13.4-35.0) % Mcdonald % (Auto) 6.4 (0.0-7.3) % Eos % (Auto) 0.5 (0.0-4.3) % Baso % (Auto) 0.2 (0.0-1.8) % Lymph # (Auto) 1.3 (1.2-5.4) K/mm3 Mcdonald # (Auto) 0.8 (0.0-0.8) K/mm3 Eos # (Auto) 0.1 (0.0-0.4) K/mm3 Baso # (Auto) 0.0 (0.0-0.1) K/mm3 Seg Neutrophils % 81.8 H (40.0-70.0) % Seg Neutrophils # 9.6 H (1.8-7.7) K/mm3 Sodium 137 (137-145) mmol/L Potassium 4.6 (3.6-5.0) mmol/L Chloride 104.7 (98-107) mmol/L Carbon Dioxide 23 (22-30) mmol/L Anion Gap 14 mmol/L BUN 17 (7-17) mg/dL Creatinine 0.5 L (0.6-1.2) mg/dL Estimated GFR > 60 ml/min BUN/Creatinine Ratio 34 % Glucose 77 (65-100) mg/dL Calcium 9.6 (8.4-10.2) mg/dL Total Bilirubin 0.60 (0.1-1.2) mg/dL AST 20 (5-40) units/L ALT 9 (7-56) units/L Alkaline Phosphatase 47 (35-129) units/L Total Protein 7.8 (6.3-8.2) g/dL Albumin 4.4 (3.9-5) g/dL Albumin/Globulin Ratio 1.3 % Lipase 33 (13-60) units/L HCG, Quant (0-4) mIU/mL Urine Color (Yellow) Urine Turbidity (Clear) Urine pH (5.0-7.0) Ur Specific [place] (1.003-1.030) Urine Protein (Negative) mg/dL Urine Glucose (UA) (Negative) mg/dL Urine Ketones (Negative) mg/dL Urine Blood (Negative) Urine Nitrite (Negative) Urine Bilirubin (Negative) Urine Urobilinogen (<2.0) mg/dL Ur Leukocyte Esterase (Negative) Urine WBC (Auto) (0.0-6.0) /HPF Urine RBC (Auto) (0.0-6.0) /HPF U Epithel Cells (Auto) (0-13.0) /HPF Urine Bacteria (Auto) (Negative) /HPF Urine Mucus /HPF Urine HCG, Qual (Negative) 06/15/21 06/15/21 Range/Units 13:26 Unknown WBC (4.5-11.0) K/mm3 RBC (3.65-5.03) M/mm3 Hgb (10.1-14.3) gm/dl Hct (30.3-42.9) % MCV (79-97) fl MCH (28-32) pg MCHC (30-34) % RDW (13.2-15.2) % Plt Count (140-440) K/mm3 Lymph % (Auto) (13.4-35.0) % Mcdonald % (Auto) (0.0-7.3) % Eos % (Auto) (0.0-4.3) % Baso % (Auto) (0.0-1.8) % Lymph # (Auto) (1.2-5.4) K/mm3 Mcdonald # (Auto) (0.0-0.8) K/mm3 Eos # (Auto) (0.0-0.4) K/mm3 Baso # (Auto) (0.0-0.1) K/mm3 Seg Neutrophils % (40.0-70.0) % Seg Neutrophils # (1.8-7.7) K/mm3 Sodium (137-145) mmol/L Potassium (3.6-5.0) mmol/L Chloride (98-107) mmol/L Carbon Dioxide (22-30) mmol/L Anion Gap mmol/L BUN (7-17) mg/dL Creatinine (0.6-1.2) mg/dL Estimated GFR ml/min BUN/Creatinine Ratio % Glucose (65-100) mg/dL Calcium (8.4-10.2) mg/dL Total Bilirubin (0.1-1.2) mg/dL AST (5-40) units/L ALT (7-56) units/L Alkaline Phosphatase (35-129) units/L Total Protein (6.3-8.2) g/dL Albumin (3.9-5) g/dL Albumin/Globulin Ratio % Lipase (13-60) units/L HCG, Quant < 2 (0-4) mIU/mL Urine Color Yellow (Yellow) Urine Turbidity Clear (Clear) Urine pH 6.0 (5.0-7.0) Ur Specific [place] 1.023 (1.003-1.030) Urine Protein <15 mg/dl (Negative) mg/dL Urine Glucose (UA) Neg (Negative) mg/dL Urine Ketones Neg (Negative) mg/dL Urine Blood Neg (Negative) Urine Nitrite Neg (Negative) Urine Bilirubin Neg (Negative) Urine Urobilinogen < 2.0 (<2.0) mg/dL Ur Leukocyte Esterase Neg (Negative) Urine WBC (Auto) < 1.0 (0.0-6.0) /HPF Urine RBC (Auto) 1.0 (0.0-6.0) /HPF U Epithel Cells (Auto) 5.0 (0-13.0) /HPF Urine Bacteria (Auto) 1+ (Negative) /HPF Urine Mucus Few /HPF Urine HCG, Qual Positive A (Negative) - Medical Decision Making 25-year-old -[place] female patient presents with complaints of upper abdominal pain intermittently for the past year. She states the pain occurs 2-3 times a month and normally wakes her up out of her sleep. She describes it as a stabbing type pain that causes her to vomit and she remains nauseous for the rest of the day. The pain last occurring last night per patient. She denies any hematemesis/coffee-ground emesis, diarrhea/constipation, melena/hematochezia, fever/chills/sweats, chest pain, shortness of breath, or urinary symptoms. No pain at this time per patient. She denies any past medical history or abdominal surgical history. Mildly elevated white count noted on CBC. Qualitative hCG is positive. OB u ltrasound performed and is negative for any IUP. Quantitative hCG now resulted and is negative. No abdominal tenderness to palpation noted on exam. Given the chronicity of patient's symptoms and lack of symptoms at this time, recommend patient follows up with GI for further assessment. Pepcid and Bentyl given to use as needed. Her vitals are normal, she is well-appearing, she is stable for discharge home. Discussed plan of care and signs and symptoms that should prompt immediate return to the emergency department in detail with patient who verbalizes understanding. Critical care attestation.: If time is entered above; I have spent that time in minutes in the direct care of this critically ill patient, excluding procedure time. ED Disposition Clinical Impression: Chronic abdominal pain Disposition: HOME / SELF CARE / HOMELESS Is pt being admited?: No Condition: Stable Instructions: Abdominal Pain (ED), Abdominal Pain, Adult Prescriptions: Dicyclomine [Bentyl] 20 mg PO QID PRN #40 tablet PRN Reason: abdominal cramping Famotidine [Pepcid] 20 mg PO BID PRN #20 tablet PRN Reason: heartburn Referrals: PRIMARY CARE, [Primary Care Provider] - 3-5 Days [facility] [Provider Group] - 3-5 Days Forms: Work/School Release Form(ED)
--- NOTE | 2021-06-16 08:56 | Ultrasound Report ---
US OB transvaginal, US OB <= 14 weeks fetus INDICATION / CLINICAL INFORMATION: pain in . TECHNIQUE: Transabdominal. COMPARISON: None available. FINDINGS: UTERUS: Small 1 cm fibroid. The ventral thickness is 13 mm. GESTATIONAL SAC: No gestational sac is visualized. YOLK SAC: None EMBRYO/FETUS: - [place]-Rump Length =No pole. ADNEXA: There is a 2.5 cm peripherally thickened right ovarian cystic lesion with peripheral vascular ity. FREE FLUID: Free fluid is seen in the pelvis.. ADDITIONAL FINDINGS: None. IMPRESSION: 1. No intrauterine gestational sac which could be related to early intrauterine . There is a thick-walled right ovarian cyst which likely represents a corpus luteal cyst but although rare, an intraovarian ectopic can have a similar appearance. Correlate clinically. Recommend follow up sonograms and repeat BHCG as indicated. Signer Name: Parviz Aceves MD Signed: 06/15/2021 3:09 PM Workstation Name: [id number]
--- NOTE | 2021-06-16 08:56 | Ultrasound Report ---
US OB transvaginal, US OB <= 14 weeks fetus INDICATION / CLINICAL INFORMATION: pain in . TECHNIQUE: Transabdominal. COMPARISON: None available. FINDINGS: UTERUS: Small 1 cm fibroid. The ventral thickness is 13 mm. GESTATIONAL SAC: No gestational sac is visualized. YOLK SAC: None EMBRYO/FETUS: - [place]-Rump Length =No pole. ADNEXA: There is a 2.5 cm peripherally thickened right ovarian cystic lesion with peripheral vascular ity. FREE FLUID: Free fluid is seen in the pelvis.. ADDITIONAL FINDINGS: None. IMPRESSION: 1. No intrauterine gestational sac which could be related to early intrauterine . There is a thick-walled right ovarian cyst which likely represents a corpus luteal cyst but although rare, an intraovarian ectopic can have a similar appearance. Correlate clinically. Recommend follow up sonograms and repeat BHCG as indicated. Signer Name: Parviz Aceves MD Signed: 06/15/2021 3:09 PM Workstation Name: [id number]
== END 2021-06-15 15:30 | disposition home or self-care (01) ==
LOC: ED 08:04
DX: O26.899 Other specified pregnancy related conditions, unspecified trimester (principal); G89.29 Other chronic pain; R10.10 Upper abdominal pain, unspecified; O21.9 Vomiting of pregnancy, unspecified; Z3A.00 Weeks of gestation of pregnancy not specified
CPT/HCPCS: 36415; 76801; 76817; 80053; 81001; 81025; 83690; 84702; 85025; 99284